=== PATIENT | male | born 1985 | race Caucasian/White ===

== ENCOUNTER 2018-04-06 13:27 | Inpatient (IN) | payer MEDICAID ==
[~2018-04-06] VITALS: Ht 177.8 cm; Wt 117.9 kg
[2018-04-06 14:16] LABS: BASOPHILS % (AUTO) 0.5 % (0.0-2.0); EOSINOPHILS % (AUTO) 1.4 % (0.0-6.0); HEMATOCRIT 49 % (39-51); HEMOGLOBIN 16.5 g/dL (13.5-17.5); LYMPHOCYTES # (AUTO) 1.7 /CMM (0.8-4.8); LYMPHOCYTES % (AUTO) 22.1 % (20.0-44.0); MEAN CORPUSCULAR HEMOGLOBIN 29 PG (26.0-33.0); MEAN CORPUSCULAR HGB CONC 34 g/dl (31.0-36.0); MEAN CORPUSCULAR VOLUME 86 fL (80-96); MONOCYTES # (AUTO) 0.3 /CMM (0.1-1.30); MONOCYTES % (AUTO) 4.2 % (2.0-12.0); NEUTROPHILS # (AUTO) 5.4 /CMM (1.8-8.9); NEUTROPHILS % (AUTO) 71.8 % (43.0-81.0); PLATELET COUNT (AUTO) 223 /CMM (150-450); RDW COEFFICIENT OF VARIATION 12.4 (11.5-15.0); RED BLOOD CELL COUNT(AUTO) 5.68 MIL/uL (4.5-6.0); WHITE BLOOD COUNT (AUTO) 7.5 K/uL (4.3-11.0)
--- NOTE | 2018-04-06 14:25 | NUR ---
PT CAME IN WITH C/O WEAKNESS, FREQUENT URINATION AND EXCESSIVE THIRST X 3 WEEKS. SEEN BY PA FOR EVAL. NAD NOTED. VSS. IV ACCESS STARTED. BLOOD DRAWN FOR LABS. SAFETY AND COMFORT MEASURES PROVIDED. WILL MONITOR.
[2018-04-06] MEDS ORDERED: IV NS 0.9% 1,000 ML BAG IV ONE ×2 (14:30→15:30)
[2018-04-06] MEDS ORDERED: FAMOTIDINE/PF INJ 20 MG/2 ML VIAL IV ONE ×2 (14:30→14:34)
[2018-04-06 15:06] LABS: CALCIUM, SERUM 9.1 mg/dL (8.5-10.1); CREATININE 1.3 mg/dL (0.6-1.3); POTASSIUM 4.5 mmol/L (3.5-5.1)
[2018-04-06 15:09] LABS: APPEARANCE,URINE Clear (CLEAR); BILIRUBIN,URINE Negative (NEGATIVE); BLOOD, URINE Negative Ery/uL (NEGATIVE); COLOR,URINE Yellow (YELLOW); KETONES,URINE Trace (NEGATIVE); LEUKOCYTE ESTERASE ,URINE Negative (NEGATIVE); NITRITE, URINE Negative (NEGATIVE); PH,URINE 5.5 (5.0-8.0); PROTEIN,URINE Negative (NEGATIVE); UGLUCOSE >=1000 mg/dL (NEGATIVE); UROBILINOGEN,URINE 0.2 EU/dL (0.2)
[2018-04-06 15:11] LABS: ALBUMIN 3.9 g/dL (3.4-5.0); BILIRUBIN,DIRECT 0.1 mg/dL (0.0-0.2); BILIRUBIN,TOTAL 0.6 mg/dL (0.2-1.0); TOTAL PROTEIN, SERUM 7.9 g/dL (6.4-8.2)
[2018-04-06 15:12] LABS: BACTERIA,URINE Rare /HPF (None Seen); RBC,URINE NONE SEEN /HPF (0-2); SQUAMOUS EPITHELIAL CELL,UR Rare /HPF (None Seen); WBC,URINE 0-2 /HPF (0-3)
--- NOTE | 2018-04-06 15:33 | NUR ---
PAGEFrancoise MARIO FOR ADMISSION
--- NOTE | 2018-04-06 16:10 | NUR ---
BUSINESS TECHNOLOGY PROFESSOR AT FOR BLOOD DRAW.
--- NOTE | 2018-04-06 16:32 | NUR ---
BLOOD SUGAR= 499 MM/DL
--- NOTE | 2018-04-06 17:32 | NUR ---
REPORT GIVEN TO MARYLU PRESCOTT FOR TELE [phone]
[2018-04-06] MEDS ORDERED: MAGNESIUM HYDROXIDE 30 ML UDC PO PRN (18:30)
[2018-04-06] MEDS ORDERED: DEXTROSE 50%-WATER 50 ML DISP.SYRIN IV PRN (18:30)
[2018-04-06] MEDS ORDERED: HYDROCODONE/APAP 5/325MG 1 EACH TABLET PO PRN (18:30)
[2018-04-06] MEDS ORDERED: ACETAMINOPHEN 325 MG TABLET PO PRN (18:30)
[2018-04-06] MEDS ORDERED: ONDANSETRON HCL/PF 4 MG/2 ML VIAL IVP PRN (18:30)
[2018-04-06] MEDS ORDERED: Z GUARD REMEDY 2 OZ OINT TP PRN (18:30)
[2018-04-06] MEDS ORDERED: ZOLPIDEM TARTRATE 5 MG TABLET PO PRN (18:30)
[2018-04-06] MEDS: BLOOD SUGAR DIAGNOSTIC 1 EACH STRIP IN SCH ×2 (18:48→22:33)
--- NOTE | 2018-04-06 18:52 | NUR ---
MS RN CLOSING NOTES PATIENT IS IN STABLE CONDITION. IN NO APPARENT DISTRESS. BEDSIDE RAILS ARE UPX2. BED IS LOCKED AND LOWERED. CALL LIGHT IS WITHIN REACH. IV LINE IS INTACT AND PATENT. WILL ENDORSE CARE TO UNDERWATER WELDER NURSE FOR HONG.
[2018-04-06] MEDS: IV NS 0.9% 1,000 ML IV PRN (19:01)
--- NOTE | 2018-04-06 19:30 | NUR ---
KENYNO MS OPENING NOTES RECEIVED PATIENT IN BED AWAKE. ALERT AND ORIENTED X4. FAMILY AT BEDSIDE. BREATHING EVEN AND UNLABORED. NO SOB NOTED - TOLERATING ROOM AIR. DENIES ANY PAIN OR DISCOMFORT. IV ON RIGHT AC#20 INTACT AND PATENT - INFUSING NS @ 125ML/HR. SKIN DRY AND WARM TO TOUCH. ALL OTHER NEEDS ATTENDED TO. CALL LIGHT WITHIN REACH. BED ON LOWEST LOCKED POSITION. WILL CONTINUE TO MONITOR. Addendum: 04/06/18 at 2134 by MIRI BALDERAS RN FYI; PATIENT IS TELE.
[2018-04-06] MEDS: INSULIN REGULAR, HUMAN 100 UNIT/ML 3 ML VIAL SQ PRN ×2 (19:46→22:34)
[2018-04-06 20:00] VITALS: BP 129/69
[2018-04-07 00:46] VITALS: BP 118/69
[2018-04-07] MEDS: IV NS 0.9% 1,000 ML IV PRN (03:07)
[2018-04-07 04:00] VITALS: BP 104/60
[2018-04-07] MEDS: INSULIN REGULAR, HUMAN 100 UNIT/ML 3 ML VIAL SQ PRN ×3 (06:25→12:40)
[2018-04-07] MEDS: BLOOD SUGAR DIAGNOSTIC 1 EACH STRIP IN SCH ×2 (06:31→12:39)
[2018-04-07 06:39] LABS: CREATININE 0.9 mg/dL (0.6-1.3); MAGNESIUM 1.8 mg/dL (1.8-2.4); PHOSPHORUS 3.8 mg/dL (2.5-4.9); POTASSIUM 3.7 mmol/L (3.5-5.1)
--- NOTE | 2018-04-07 06:53 | NUR ---
TEXTILES PRINTER CLOSING NOTES PATIENT IN BED AWAKE. ALERT AND ORIENTED X4. NO ACUTE CHANGES THROUGHOUT SHIFT. BREATHING EVEN AND UNLABORED. NO SOB NOTED - TOLERATING ROOM AIR. DENIES ANY PAIN OR DISCOMFORT. IV ON RIGHT AC#20 INTACT AND PATENT - INFUSING NS @ 125ML/HR. SKIN DRY AND WARM TO TOUCH. ALL OTHER NEEDS ATTENDED TO. CALL LIGHT WITHIN REACH. BED ON LOWEST LOCKED POSITION. ENDORSE TO ONCOMING NURSE FOR CONTINUITY OF CARE.
[2018-04-07 07:05] LABS: BASOPHILS % (AUTO) 0.4 % (0.0-2.0); EOSINOPHILS % (AUTO) 2.5 % (0.0-6.0); HEMATOCRIT 41 % (39-51); LYMPHOCYTES # (AUTO) 1.8 /CMM (0.8-4.8); LYMPHOCYTES % (AUTO) 36.7 % (20.0-44.0); MEAN CORPUSCULAR HEMOGLOBIN 29 PG (26.0-33.0); MEAN CORPUSCULAR HGB CONC 34 g/dl (31.0-36.0); MEAN CORPUSCULAR VOLUME 84 fL (80-96); MONOCYTES # (AUTO) 0.2 /CMM (0.1-1.30); MONOCYTES % (AUTO) 5.1 % (2.0-12.0); NEUTROPHILS # (AUTO) 2.7 /CMM (1.8-8.9); NEUTROPHILS % (AUTO) 55.3 % (43.0-81.0); PLATELET COUNT (AUTO) 190 /CMM (150-450); RDW COEFFICIENT OF VARIATION 12.6 (11.5-15.0); RED BLOOD CELL COUNT(AUTO) 4.86 MIL/uL (4.5-6.0); WHITE BLOOD COUNT (AUTO) 4.8 K/uL (4.3-11.0)
--- NOTE | 2018-04-07 07:55 | NUR ---
EVENTS MANAGER OPENING NOTES Received patient in bed, awake, alert oriented X4, breathing even and unlabored, on room air and tolerating, skin warm and soft to touch, IV on right AC#20 intact and patent - infusing NS @ 125ML/HR, no complaint of pain or discomfort, call light within reach at all times, will continue to monitor.
[2018-04-07 08:00] VITALS: BP 122/72
[2018-04-07 08:44] VITALS: BP 122/72
[2018-04-07] MEDS ORDERED: Fenofibrate 48 MG TABLET PO SCH (09:00)
[2018-04-07] MEDS ORDERED: METFORMIN 500 MG TABLET PO SCH (09:00)
[2018-04-07] MEDS ORDERED: LISINOPRIL (5MG) 5 MG TABLET PO SCH (09:00)
[2018-04-07] MEDS ORDERED: METF-440 PO (11:13)
[2018-04-07] MEDS ORDERED: FENO48TA PO (11:13)
== END 2018-04-07 13:00 | disposition home or self-care (01) | DRG 420 ==
LOC: ER 13:31 → TELE 17:32 → MED 04-07 09:41
PROVIDERS: ADMIT Nurse Practitioner Acute Care; ATTEND Nurse Practitioner Acute Care
DX: E11.00 Type 2 diabetes mellitus with hyperosmolarity without nonketotic hyperglycemic-hyperosmolar coma (NKHHC) (principal); D68.59 Other primary thrombophilia; E11.65 Type 2 diabetes mellitus with hyperglycemia; E86.0 Dehydration; E87.1 Hypo-osmolality and hyponatremia; E66.01 Morbid (severe) obesity due to excess calories; E78.1 Pure hyperglyceridemia
CPT/HCPCS: 36415; 80048-TC; 80061-TC; 80076-TC; 81000-TC; 82947-TC; 82962-TC; 83735-TC; 84100-TC; 85025-TC; 87081-TC; J1815; J3490; J7030; Z7610